=== PATIENT | female | born 1980 | race Caucasian/White ===

== ENCOUNTER 2019-09-11 19:07 | Emergency (ER) | payer OTHER, SELFPAY ==
[2019-09-11 19:09] VITALS: BP 144/95; PULSE 98; RESP 18; TEMP 36.8; O2SAT 98
[2019-09-11] MEDS: SODIUM CHLORIDE 0.9% IV 1,000 ML 999 ML IV CONT (19:35)
[2019-09-11] MEDS: ONDANSETRON INJ 4 MG/2 ML VIAL (19:36)
--- NOTE | 2019-09-11 19:36 | ED.ABDPAIN ---
HPI - Abdominal Pain General Chief Complaint: Abdominal Pain <Curt Miller PA-C - Last Filed: 09/11/19 21:28> Stated Complaint: Possible Ovary Cyst <Curt Miller PA-C - Last Filed: 09/11/19 21:28> Time Seen by Provider: 09/11/19 19:19 <Curt Miller PA-C - Last Filed: 09/11/19 21:28> Source: patient <Curt Miller PA-C - Last Filed: 09/11/19 21:28> Mode of arrival: ambulatory <Curt Miller PA-C - Last Filed: 09/11/19 21:28> Limitations: no limitations <Curt Miller PA-C - Last Filed: 09/11/19 21:28> History of Present Illness HPI narrative: Patient is a 39-year-old female who presents to emergency department for evaluation of lower abdominal pain in the pelvic region noting that she is currently on her minces and has had similar occurrences in the past patient had concerned that she may have ruptured an ovarian cyst patient on arrival notes she took ibuprofen with considerable improvement notes minimal pain on arrival denies any fever chills nausea vomiting URI symptoms or other complaint <Curt Miller PA-C - Last Filed: 09/11/19 21:28> Related Data Home Medications: Home Medications Medication Instructions Recorded Confirmed No Home Medications 09/11/19 09/11/19 <Curt Miller PA-C - Last Filed: 09/11/19 21:28> Allergies/Adverse Reactions: Allergies Allergy/AdvReac Type Severity Reaction Status Date / Time No Known Allergies Allergy Verified 09/11/19 19:19 <Curt Miller PA-C - Last Filed: 09/11/19 21:28> Review of Systems Review of Systems: All systems reviewed & are unremarkable except as noted in HPI and below <Curt Miller PA-C - Last Filed: 09/11/19 21:28> [facility] Surgical History Surgical History: Surgical History H/O section <Curt Miller PA-C - Last Filed: 09/11/19 21:28> Social History Social History: Social History (Reviewed 09/11/19 @ 19:41 by PHANI Hall Smoking status: Never smoker Gender identity (if verbalized by the patient): Female <Curt Miller PA-C - Last Filed: 09/11/19 21:28> Exam Narrative: Exam Narrative: GENERAL: Well-appearing, well-nourished, and in no acute distress. HEAD: Normocephalic, atraumatic. EYES: PERRLA and EOMI. ENT: Nares clear, no rhinorrhea or epistaxis. Mucous membranes moist. CHEST: Clear to auscultation. No respiratory distress. No wheezes rales or rhonchi HEART: Regular rate and rhythm. No murmur heard. Normal peripheral pulses. ABDOMEN: Soft, nontender, nondistended EXTREMITIES: Normal range of motion. No edema. SKIN: Warm, dry, no rash. NEURO: No focal deficits. Alert and oriented x3. PSYCH: Normal mood and affect. <Curt Miller PA-C - Last Filed: 09/11/19 21:28> Course Course Emergency Course: Patient in the room in no distress aware of case findings treatment plan and diagnosis agreeing to follow-up as directed or to return if symptoms worsen or concerns patient is afebrile nontoxic-appearing no distress leukocytosis could be related to her discomfort and pain patient resting comfortably in the room at this time noting that she feels fine. Patient agrees to follow with primary care and will return if symptoms worsen. Patient was hydrated in the emergency department and given medications with improvement <Curt Miller PA-C - Last Filed: 09/11/19 21:28> Vital Signs Vital signs: Vital Signs Temperature 98.2 F 09/11/19 19:09 Pulse Rate 98 09/11/19 19:09 Respiratory Rate 18 09/11/19 19:09 Blood Pressure 144/95 H 09/11/19 19:09 Pulse Oximetry 98 09/11/19 19:09 Temperature 98.2 F 09/11/19 19:09 Pulse Rate 88 09/11/19 21:36 Respiratory Rate 18 09/11/19 21:36 Blood Pressure 142/84 H 09/11/19 21:36 Pulse Oximetry 98 09/11/19 21:36 <Curt Miller PA-C - Last Filed: 09/11/19 21:28>
[2019-09-11] MEDS: FAMOTIDINE 20 MG/2 ML VIAL IV PUSH (19:38)
[2019-09-11 19:45] LABS: Basophils Percent Auto 0.2 % (0.2-1.2); Eosinophils Absolute Auto 0.3 K/mm3 (0-0.3); Eosinophils Percent Auto 1.7 % (0-4.4); Hemoglobin 14.3 g/dL (12.0-15.0); Immature Granulocyte Absolute 0.09 K/mm3 (0.00-0.031); Immature Granulocyte Percent A 0.5 % (0-0.5); Lymphocytes Absolute Auto 1.67 K/mm3 (0.9-3.2); Lymphocytes Percent Auto 9.9 % (18.3-44.2); Mean Corpuscular Hemoglobin 31.3 pg (26-34); Mean Corpuscular Volume 91.9 fl (80-100); Mean Platelet Volume 11.7 fl (7.4-10.4); Monocytes Absolute Auto 0.8 K/mm3 (0.1-0.6); Monocytes Percent Auto 4.8 % (2.6-8.5); Neutrophils Percent Auto 82.9 % (45.5-73.1); Platelet Count Result 227 k/mm3 (150-375); Red Blood Count 4.57 M/mm3 (4.2-5.4); Red Cell Distribution Width 12.5 % (11.5-14.5); White Blood Count 16.9 K/mm3 (4.5-10.0)
[2019-09-11 19:57] LABS: Alanine Aminotransferase 20 U/L (4-35); Alkaline Phosphatase 59 U/L (38-126); Aspartate Amino Transferase 25 U/L (14-36); Bilirubin,Total 0.4 mg/dL (0.2-1.3); Blood Urea Nitrogen 13 mg/dL (7-17); Calcium 9.6 mg/dL (8.4-10.2); Carbon Dioxide 26 mmol/L (22-30); Chloride 104 mmol/L (98-107); Estimated CRCL calculation 81 ml/min; Estimated Glomerular Filt Rate > 60; Glucose 106 mg/dL (65-105); Lipase 103 U/L (23-300); Potassium 3.7 mmol/L (3.4-5.0); Sodium 140 mmol/L (137-145)
[2019-09-11 21:25] LABS: Add Urine Microscopic? YES; Appearance Urine Clear (Clear); Bilirubin Urine Negative (Negative); Blood Urine 2+ (Negative); Color Urine Straw (Yellow); Glucose Urine UA Negative (Negative); Ketones Urine Negative (Negative); Leukocyte Esterase Ur Negative LEU/UL (Negative); Mucus Urine Rare /lpf; Nitrate Urine Negative (Negative); Protein Urine Negative (Negative); RBC Urine 0-2 /hpf (0-2); Specific Grav Ur 1.015 (1.001-1.035); Squamous Epithelial Cell Urine Rare /hpf (Few); Urobilinogen Urine Negative mg/dL (<2.0); WBC Urine 0-3 /hpf
[2019-09-11 21:36] VITALS: BP 142/84; PULSE 88; RESP 18; O2SAT 98
== END 2019-09-11 22:00 | disposition home or self-care (01) ==
PROVIDERS: Emergency Provider Emergency Medicine
DX: R10.30 Lower abdominal pain, unspecified (principal)
CPT/HCPCS: 36415; 80053; 81001; 81025; 83690; 85025; 96374; 96375; 99284; J0131; J2405; J7030

== ENCOUNTER 2019-09-15 11:05 | Outpatient (CLI) | payer OTHER, SELFPAY ==
--- NOTE | ~2019-09-15 | CT_ITS ---
EXAMINATION: CT abdomen pelvis wo con DATE: 09/15/2019 11:56 INDICATION: Right lower quadrant abdominal pain TECHNIQUE: Computed tomography (CT) of the abdomen and pelvis was performed without intravenous contr ast. The dose-length product was 548.53 mGy-cm. Automated exposure control and iterative reconstructi on technique were employed. COMPARISON: None. FINDINGS: Lung bases are unremarkable. No significant pleural or pericardial effusion. Heart size is normal. No lymphadenopathy. No significant vascularity abnormality. Normal appendix. The liver, spleen, pancreas, adrenal glands and kidneys are unremarkable. No renal o r ureteral stones. No hydronephrosis. No abnormal pelvic masses or fluid collections. Nonobstructive bowel gas pattern. No free air or free fluid. No acute osseous abnormality. IMPRESSION: 1. No acute abdominal abnormality. No findings to account for patient's symptoms. Reviewed, dictated and finalized at location B. IMPRESSION: 1. No acute abdominal abnormality. No findings to account for patient's symptom s.
== END 2019-09-15 11:06 | disposition home or self-care (01) ==
PROVIDERS: PCP Emergency Medicine; Visit Provider Emergency Medicine
DX: R10.31 Right lower quadrant pain (principal)
CPT/HCPCS: 74176

== ENCOUNTER 2020-04-21 15:35 | Emergency (ER) | payer OTHER, SELFPAY ==
--- NOTE | ~2020-04-21 | XR_ITS ---
XR finger 3rd RT min 2V DATE: 04/21/2020 16:22 INDICATION: Finger bent on an object today. Pain at proximal interphalangeal joint TECHNIQUE: 3 views COMPARISON: None FINDINGS: Small focal mildly comminuted fracture at the anterior base of the middle phalanx. There is associated soft tissue swelling centered at the proximal interphalangeal joint. No other fracture or dislocation. IMPRESSION: Small focal comminuted fracture the anterior base of the middle phalanx Reviewed, dictated and finalized at location B. IST IMPRESSION: Small focal comminuted fracture the anterior base of the middle pha lanx
[2020-04-21 15:56] VITALS: BP 130/75; PULSE 98; RESP 16; TEMP 36.7; O2SAT 99
--- NOTE | 2020-04-21 16:20 | ED.UPPEXIN ---
HPI - Extremity Injury (Upper) General Chief Complaint: Extremity Injury, Upper Stated Complaint: finger pain/injury Time Seen by Provider: 04/21/20 16:06 Source: patient Mode of arrival: ambulatory Limitations: no limitations History of Present Illness HPI narrative: A 39-year-old female comes into the emergency department today with complaints of an injury to her right hand, specifically the middle finger. Patient states her son jumped over a tote of toys, she reached out trying to stop it jammed her finger. She does complain of pain at the PIP on her middle finger. She states that she is unable to straighten it or bend it due to pain. She denies any numbness or tingling. Related Data Allergies Allergy/AdvReac Type Severity Reaction Status Date / Time No Known Allergies Allergy Verified 04/21/20 15:59 Review of Systems Review of Systems: Narrative: CONSTITUTIONAL: Denies fever, chills, or sweats. EYES: Denies visual changes, redness, or discharge. ENT: Denies rhinorrhea, congestion, sore throat, or otalgia. CARDIOVASCULAR: Denies chest pain, palpitations, or edema. RESPIRATORY: Denies cough or dyspnea. GASTROINTESTINAL: Denies abdominal pain, nausea, vomiting, or diarrhea. GENITOURINARY: Denies dysuria or hematuria. SKIN: Denies rash or itching. MUSCULOSKELETAL: Denies back pain, joint pain, or myalgia. Pain right middle finger NEUROLOGIC: Denies headache, numbness, dizziness, or weakness. PSYCHIATRIC: Denies anxiety or depression. [facility] Surgical History Surgical History H/O section Social History Social History Smoking status: Never smoker Gender identity (if verbalized by the patient): Female Exam Narrative: Exam Narrative: GENERAL: Well-appearing, well-nourished, and in no acute distress. HEAD: Normocephalic, atraumatic. EYES: PERRLA and EOMI. ENT: Nares clear, no rhinorrhea or epistaxis. Mucous membranes moist. NECK: Supple. No adenopathy or masses. No carotid bruits or JVD CHEST: Clear to auscultation. No respiratory distress. No wheezes rales or rhonchi HEART: Regular rate and rhythm. No murmur heard. Normal peripheral pulses. ABDOMEN: Soft, nontender, nondistended, normal active bowel sounds. EXTREMITIES: Normal range of motion. No edema. Swelling and pain to palpation noted in the right PIP of the third digit SKIN: Warm, dry, no rash. NEURO: No focal deficits. Alert and oriented x3. PSYCH: Normal mood and affect. Course Reevaluation(s) Reevaluation #1: Patient reevaluated and provided care update. Informed her of the comminuted fracture. Patient placed in an AlumaFoam splint. Recommended that she follow-up with hand surgery. Patient will also be given a few pain medications upon discharge. Time: 17:29 Vital Signs Vital signs: Vital Signs Temperature 36.7 C 04/21/20 15:56 Pulse Rate 98 04/21/20 15:56 Respiratory Rate 16 04/21/20 15:56 Blood Pressure 130/75 04/21/20 15:56 Pulse Oximetry 99 04/21/20 15:56 Temperature 36.7 C 04/21/20 15:56 Pulse Rate 98 04/21/20 15:56 Respiratory Rate 16 04/21/20 15:56 Blood Pressure 130/75 04/21/20 15:56 Pulse Oximetry 99 04/21/20 15:56 MDM - Extremity Injury (Upper) MDM Narrative Medical decision making narrative: In brief this 39-year-old female came into the emergency department tonight with complaints of a injury to her middle finger. Patient had x-rays which did demonstrate a comminuted fracture of the distal aspect of the middle phalanx. Patient was placed in an aluminum finger splint. She will be discharged to follow-up with Dr. Marie. Differential Diagnosis Differential diagnosis: Likely sprain and strain of wrist, fracture of wrist, finger sprain, dislocation of finger, fracture of hand, dislocation of shoulder and fracture of humerus Medical Records Attestation: I reviewed the patient's medica
== END 2020-04-21 18:45 | disposition home or self-care (01) ==
PROVIDERS: Emergency Provider Emergency Medicine; PCP Emergency Medicine
DX: S62.652A Nondisplaced fracture of middle phalanx of right middle finger, initial encounter for closed fracture (principal); W22.8XXA Striking against or struck by other objects, initial encounter
CPT/HCPCS: 29130; 73140; 99284

== ENCOUNTER 2022-07-11 15:15 | Emergency (ER) | payer OTHER, SELFPAY ==
--- NOTE | ~2022-07-11 | CT_ITS ---
EXAMINATION: CT abdomen pelvis w con DATE: 07/11/2022 17:07 INDICATION: Localized abdominal pain. TECHNIQUE: Computed tomography (CT) of the abdomen and pelvis was performed with 100 mL Omnipaque 350 intravenous contrast. Automated exposure control and iterative reconstruction technique were employe d. The dose-length product was 480.94 mGy-cm. COMPARISON: CT abdomen and pelvis 09/15/2019 FINDINGS: The visualized portions of the lung bases demonstrate mild atelectasis. No pleural effusion . The heart size is normal. No pericardial effusion. There is a small sliding hiatal hernia. The live r, gallbladder, spleen, pancreas, adrenal glands, and kidneys are normal. There is a 4.6 cm mass in r ight ovary measuring greater than simple fluid in attenuation. There is diverticulosis of the colon w ithout evidence of diverticulitis. The appendix is normal. There are no pathologically enlarged lymph nodes. There is fat stranding in the lower abdomen. There is trace ascites. There is mild thoracolum bar spondylosis. IMPRESSION: 1. 4.6 cm mass in right ovary, most likely a hemorrhagic cyst. Pelvic ultrasound is recommended. 2. Small sliding hiatal hernia. Reviewed, dictated and finalized at location E. IMPRESSION: 1. 4.6 cm mass in right ovary, most likely a hemorrhagic cyst. Pelvic ultrasoun d is recommended. 2. Small sliding hiatal hernia.
--- NOTE | ~2022-07-11 | US_ITS ---
EXAMINATION: US pelvic complete w TV DATE: 07/11/2022 19:10 INDICATION: Pelvic pain. TECHNIQUE: Multiple transabdominal and transvaginal sonographic images of the pelvis were obtained. COMPARISON: CT abdomen and pelvis 07/11/2022 FINDINGS: TRANSABDOMINAL ULTRASOUND: The uterus measures 10.1 x 4.2 x 4.5 cm. There is no free fluid in the pelvis. TRANSVAGINAL ULTRASOUND: The endometrial complex measures 7 mm in thickness. The right ovary measures 6.1 x 4.2 x 4.7 cm. Ther e is a 5.2 cm cyst with low-level echoes in right ovary, consistent with a hemorrhagic cyst. The left ovary measures 3.2 x 2.6 x 3.5 cm. There is normal vascular flow in the ovaries. IMPRESSION: 1. 5.2 cm hemorrhagic cyst in right ovary. Pelvic ultrasound is recommended in 6-12 weeks. Reviewed, dictated and finalized at location E.
[2022-07-11 15:16] VITALS: BP 112/73; PULSE 71; RESP 16; TEMP 36.9; O2SAT 96
[2022-07-11 16:03] VITALS: BP 110/66; PULSE 73; RESP 16; O2SAT 99
[2022-07-11] MEDS: SODIUM CHLORIDE 0.9% IV 1,000 ML 999 ML IV CONT (16:08)
[2022-07-11] MEDS: MORPHINE SULFATE (*CRX) 4 MG/ML INJ IV PUSH (16:08)
[2022-07-11] MEDS: ONDANSETRON INJ 4 MG/2 ML VIAL IV PUSH (16:08)
[2022-07-11 16:12] LABS: Basophils Absolute Auto 0.1 K/mm3 (0.0-0.1); Basophils Percent Auto 0.3 % (0.2-1.2); Eosinophils Percent Auto 0.1 % (0-4.4); Hematocrit 42.4 % (37.0-47.0); Hemoglobin 14.4 g/dL (12.0-15.0); Immature Granulocyte Absolute 0.14 K/mm3 (0.00-0.031); Immature Granulocyte Percent A 0.5 % (0-0.5); Lymphocytes Absolute Auto 1.23 K/mm3 (0.9-3.2); Lymphocytes Percent Auto 4.8 % (18.3-44.2); Mean Corpuscular Hemoglobin 30.8 pg (26-34); Mean Corpuscular Volume 90.6 fl (80-100); Mean Platelet Volume 11.3 fl (7.4-10.4); Monocytes Absolute Auto 0.8 K/mm3 (0.1-0.6); Monocytes Percent Auto 2.9 % (2.6-8.5); Neutrophils Absolute Auto 23.4 K/mm3 (1.3-6.7); Neutrophils Percent Auto 91.4 % (45.5-73.1); Platelet Count Result 268 k/mm3 (150-375); Red Blood Count 4.68 M/mm3 (4.2-5.4); Red Cell Distribution Width 12.9 % (11.5-14.5); White Blood Count 25.6 K/mm3 (4.5-10.0)
[2022-07-11 16:20] LABS: Alanine Aminotransferase 21 U/L (6-35); Albumin Level 4.9 g/dL (3.5-5.1); Alkaline Phosphatase 58 U/L (38-126); Anion Gap 13 mmol/L (8-16); Aspartate Amino Transferase 27 U/L (14-36); Bilirubin,Total 0.7 mg/dL (0.2-1.3); Blood Urea Nitrogen 13 mg/dL (7-17); Calcium 9.2 mg/dL (8.4-10.2); Carbon Dioxide 24 mmol/L (22-30); Chloride 101 mmol/L (98-107); Estimated CRCL calculation 84 ml/min; Estimated Glomerular Filt Rate > 60; Glucose 118 mg/dL (65-110); Lipase 53 U/L (23-300); Potassium 3.6 mmol/L (3.4-5.0); Sodium 138 mmol/L (137-145)
--- NOTE | 2022-07-11 16:26 | ED.GENADULT ---
HPI - General Adult General Chief complaint: Abdominal Pain <Chauncey Porras MD - Last Filed: 07/11/22 18:55> Stated complaint: abd pain <Chauncey Porras MD - Last Filed: 07/11/22 18:55> Time Seen by Provider: 07/11/22 15:29 <Chauncey Porras MD - Last Filed: 07/11/22 18:55> History of Present Illness HPI narrative: Patient is a 42-year-old female who presents ER with sudden onset abdominal pain. Diffusely in her abdomen but mainly right-sided but also in bilateral lower quadrants. Associated with nausea and vomiting. No fevers or chills or sweats. No associated with eating or drinking. Has not had similar pain before. Does not radiate into the back. No urinary frequency urgency or dysuria. She is without diarrhea. Reports she was seen at a hospital in [facility] couple weeks ago for a ovarian cyst on the right side. <Chauncey Porras MD - Last Filed: 07/11/22 18:55> Related Data Allergies/adverse reactions: Allergies Allergy/AdvReac Type Severity Reaction Status Date / Time No Known Allergies Allergy Verified 07/11/22 15:15 <Chauncey Porras MD - Last Filed: 07/11/22 18:55> Review of Systems Review of Systems: All systems reviewed & are unremarkable except as noted in HPI and below <Chauncey Porras MD - Last Filed: 07/11/22 18:55> Constitutional: Constitutional: Denies chills, Denies fatigue and Denies fever(s) <Chauncey Porras MD - Last Filed: 07/11/22 18:55> ENT: Denies nasal congestion and Denies sore throat <Chauncey Porras MD - Last Filed: 07/11/22 18:55> Cardiovascular: Cardiovascular: Denies chest pain and Denies radiating jaw, neck or arm pain <Chauncey Porras MD - Last Filed: 07/11/22 18:55> Gastrointestinal: Gastrointestinal: Reports abdominal pain, Denies constipation, Denies diarrhea, Reports nausea and Reports vomiting <Chauncey Porras MD - Last Filed: 07/11/22 18:55> Genitourinary: Genitourinary: Denies nocturia, Denies dysuria and Denies flank pain <Chauncey Porras MD - Last Filed: 07/11/22 18:55> Musculoskeletal: Musculoskeletal: Denies back pain <Chauncey Porras MD - Last Filed: 07/11/22 18:55> [facility] Past Medical History Medical History: Medical History (Updated 07/11/22 @ 20:27 by Gerald Ramirez MD) Healthy female adult <Chauncey Porras MD - Last Filed: 07/11/22 18:55> Surgical History Surgical History: Surgical History H/O section <Chauncey Porras MD - Last Filed: 07/11/22 18:55> Social History Social History: Social History Smoking status: Never smoker Gender identity (if verbalized by the patient): Female <Chauncey Porras MD - Last Filed: 07/11/22 18:55> Exam Narrative: GENERAL: Uncomfortable-appearing, well-nourished, and in no acute distress. HEAD: Normocephalic, atraumatic. EYES: PERRL and EOMI. ENT: Mucous membranes moist. CHEST: Clear to auscultation. No respiratory distress. HEART: Regular rate and rhythm. Normal peripheral pulses. ABDOMEN: Soft, tender palpation in the right upper quadrant bilateral lower quadrants with guarding, nondistended. EXTREMITIES: Normal range of motion. No edema. SKIN: Warm, dry, no rash. NEURO: Alert and oriented x3. PSYCH: Normal mood and affect. <Chauncey Porras MD - Last Filed: 07/11/22 18:55> Course Course Emergency Course: Patient still with a lot of pain. We will obtain a ultrasound of the pelvis given and significant leukocytosis and lower abdominal pain with the ovarian mass. There is concern for torsion. Patient did not get much relief with morphine and does not want Dilaudid or fentanyl. She did receive some IV Tylenol. Toradol avoided at this time due to possibility of increased bleeding risk of patient require surgery. Care will be transferred to Dr. Ramirez with ultrasound pending. <Alexandre
[2022-07-11 19:16] LABS: Appearance Urine Clear (Clear); Bilirubin Urine Negative (Negative); Blood Urine Negative (Negative); Color Urine Yellow (Yellow); Glucose Urine UA Negative (Negative); Ketones Urine 2+ mg/dL (Negative); Leukocyte Esterase Ur Negative LEU/UL (Negative); Nitrate Urine Negative (Negative); Protein Urine Negative (Negative); Urobilinogen Urine 0.2 mg/dL (<2.0); pH Urine 6.5 (5.0-9.0)
[2022-07-11 19:20] LABS: Add Urine Microscopic? NO; Specific Grav Ur 1.064 (1.001-1.035)
[2022-07-11 20:41] VITALS: BP 126/87; PULSE 75; RESP 16; O2SAT 99
== END 2022-07-11 20:42 | disposition home or self-care (01) ==
PROVIDERS: Emergency Medicine; Emergency Provider Emergency Medicine
DX: N30.01 Acute cystitis with hematuria (principal); D72.829 Elevated white blood cell count, unspecified
CPT/HCPCS: 36415; 74177; 76830; 76856; 80053; 81003; 81025; 83690; 85025; 96361; 96365; 96375; 99284; J0131; J2270; J2405; J7030; Q9967

== ENCOUNTER 2022-11-22 08:40 | Outpatient (CLI) | payer OTHER, SELFPAY ==
--- NOTE | ~2022-11-22 | US_ITS ---
EXAMINATION: US pelvic complete w TV DATE: 11/22/2022 10:02 INDICATION: Ovarian cyst Comparison:07/11/2022 TECHNIQUE: Multiple transabdominal and endovaginal sonographic images of the pelvis performed. FINDINGS: The uterus measures 7.2 x 2.7 x 4.9 cm. There are nabothian cysts. The endometrial complex measures 3.5 mm. The right ovary measures 4.1 x 2.8 x 3.1 cm and the left ovary measures 2 x 2.2 x 2.6 cm. There is no rmal Doppler signal in both ovaries. There is a 3.5 cm right ovarian cyst. There are small cysts of t he left ovary, largest measuring 1.8 cm. There is no free fluid in the pelvis. There are no abnormal masses seen on either side. IMPRESSION: 1. Bilateral ovarian cysts, largest in the right ovary measuring 3.5 cm. Reviewed, dictated and finalized at location A.
== END 2022-11-22 08:41 | disposition home or self-care (01) ==
PROVIDERS: PCP Family Medicine; Visit Provider Obstetrics & Gynecology
DX: N83.201 Unspecified ovarian cyst, right side (principal); N83.202 Unspecified ovarian cyst, left side
CPT/HCPCS: 76830; 76856